=== PATIENT | male | born 1965 | race Caucasian/White ===

== ENCOUNTER 2017-03-05 20:39 | Emergency (ER) | payer OTHER ==
[~2017-03-05] VITALS: Ht 162.6 cm; Wt 73.5 kg
[~2017-03-05 20:39] MED LIST: PRED20TA PO; VALA100057 PO
[2017-03-05 20:42] VITALS: Ht 162.6 cm; Wt 73.5 kg
[2017-03-05] MEDS ORDERED: EYE15DRO OP (21:13)
[2017-03-05] MEDS ORDERED: ACYC800T57 PO (21:13)
[2017-03-05] MEDS ORDERED: GABA300C16 PO (21:13)
[2017-03-05] MEDS ORDERED: PRED50TA PO (21:13)
--- NOTE | 2017-03-05 21:34 | ERD ---
ER Documentation Chief Complaint Date/Time DATE: 03/05/17 TIME: 21:27 Chief Complaint left side droop since yesterday; hx of bells palsy; left ear back pain HPI 51-year-old male presents to emergency department for complaints of drooping of the left side of the facial area. Patient had a history of the same type of symptoms 1 year ago, was diagnosed of Field's palsy, did not finish the dose of medication that was given to him, if he just got better on its own. Started to have the symptoms again yesterday. Patient is diabetic. Patient denies any other numbness or tingling, any other paralysis, patient denies any dizziness, headache. Patient denies any head injury. Patient denies taking blood thinners. ROS All systems reviewed and are negative except as per history of present illness. Medications Home Meds Active Scripts Gabapentin* (Gabapentin*) 300 Mg Capsule, 300 MG PO BID, #60 CAP Prov:ROXANN HOLBROOK NP 03/05/17 Eye Lubricant Combination No.1 (Freshkote) 15 Ml Drops, 15 ML OP DAILY, #1 BOTTLE Prov:ROXANN HOLBROOK NP 03/05/17 Prednisone* (Prednisone*) 50 Mg Tablet, 50 MG PO DAILY for 3 Days, TAB Prov:ROXANN HOLBROOK NP 03/05/17 Acyclovir* (Zovirax*) 800 Mg Tablet, 800 MG PO 5 TIMES DAILY for 7 Days, TAB Prov:ROXANN HOLBROOK NP 03/05/17 Prednisone* (Prednisone*) 20 Mg Tab, 80 MG PO DAILY, #56 TAB Then decrease by 10 mg per day & 7 days. Prov:GIUSEPPE HAMEED MD 01/10/16 Valacyclovir Hcl* (Valtrex*) 1,000 Mg Tablet, 1000 MG PO TID for 7 Days, TAB Prov:GIUSEPPE HAMEED MD 01/10/16 Allergies Allergies: Coded Allergies: No Known Allergy (Unverified , 01/10/16) PMhx/Soc History of Surgery: No Anesthesia Reaction: No Hx Neurological Disorder: No Hx Respiratory Disorders: No Hx Cardiac Disorders: Yes (HTN, HYPERLIPIDS) Hx Psychiatric Problems: No Hx Miscellaneous Medical Probl: No Hx Alcohol Use: No Hx Substance Use: No Hx Tobacco Use: No FmHx Family History: No coronary disease, No diabetes, No other Physical Exam Vitals Vital Signs Date Time Temp Pulse Resp B/P Pulse Ox O2 Delivery O2 Flow Rate FiO2 03/05/17 20:42 97.3 74 20 168/86 98 Physical Exam GENERAL: The patient is well developed and appropriate for usual state of health, in no apparent distress. CHEST: Clear to auscultation bilaterally. There are no rales, wheezes or rhonchi. HEART: Regular rate and rhythm. No murmurs, clicks, rubs or gallops. No S3 or S4. ABDOMEN: Soft, nontender and nondistended. Good bowel sounds. No rebound or guarding. No gross peritonitis. No gross organomegaly or masses. No Grant sign or McBurney point tenderness. BACK: No midline or flank tenderness. EXTREMITIES: Equal pulses bilaterally. There is no peripheral clubbing, cyanosis or edema. No focal swelling or erythema. Full range of motion. Grossly neurovascularly intact. NEURO: Alert and oriented. Cranial nerves 2-12 intact. Motor strength in all 4 extremities with 5/5 strength. Sensation grossly intact. Normal speech and gait. Noted paralysis of the left side of the facial nerve. Loss of the nasolabial fold noted on the left side, no forehead sparing noted. SKIN: There is no apparent rash or petechia. The skin is warm and dry. HEMATOLOGIC AND LYMPHATIC: There is no evidence of excessive bruising or lymphedema. No gross cervical, axillary, or inguinal lymphadenopathy. Procedures/MDM Medical Decision Making: Patient's symptoms most likely is consistent with a Field's palsy. There is loss of nasolabial fold, only facial nerve palsy noted. No other neurologic symptoms noted. There is low suspicion for neurological emergencies at this time since patients neurologic exam is normal. Patient did not have any altered level consciousness, vomiting, changes in balance or memory and did not have any head injury. CT scan of the brain is indicated at this time. Rx: Acyclovir, gabapentin, prednisone, eye lubricant Dispostion: Home. Stable Departure Diagnosis: Primary Impression: Field's palsy Patient Instructions: Field's Palsy Additional Instructions: REGULARLY CHECK BLOOD SUGAR, IF ELEVATED, SEE PMD FOR TEMP INCREASE OF INSULIN DOSE ROXANN HOLBROOK NP Mar 05, 2017 21:34
== END 2017-03-05 21:14 | disposition home or self-care (01) ==
LOC: FTE 20:39 → E/R 21:14
DX: G51.0 Bell's palsy (principal); I10 Essential (primary) hypertension; E11.9 Type 2 diabetes mellitus without complications
CPT/HCPCS: 99284

== ENCOUNTER 2018-04-27 09:45 | Day surgery (SDC) | END 2018-04-27 13:05 | disposition home or self-care (01) ==